=== PATIENT | male | born 1940 | race Caucasian/White ===

== ENCOUNTER 2024-03-06 14:31 | Emergency (ER) | payer OTHER ==
[~2024-03-06] VITALS: Ht 172.7 cm; Wt 77.0 kg
[2024-03-06 14:38] VITALS: BP 114/67; PULSE 110; RESP 16; O2SAT 96
[2024-03-06 15:20] LABS: CHLORIDE 101 mEq/L (98-107); POTASSIUM 3.5 mEq/L (3.5-5.1); SODIUM 135 mEq/L (136-145)
[2024-03-06 15:21] LABS: CARBON DIOXIDE 26 mEq/L (21-32)
[2024-03-06 15:22] LABS: CALCIUM 7.7 mg/dL (8.7-10.4)
[2024-03-06 15:23] LABS: BASOPHILS % 0.3 % (0.0-2.0); HEMATOCRIT. 38.8 % (42.0-52.0); HEMOGLOBIN. 13.4 g/dL (14.0-18.0); MEAN CORPUSCULAR HEMOGLOBIN 31.6 pg (28.0-32.0); MEAN CORPUSCULAR HGB CONC 34.7 g/dL (31.0-37.0); MEAN CORPUSCULAR VOLUME 91.2 fL (80.0-94.0); MEAN PLATELET VOLUME 8.4 fl (7.4-10.4); MONOCYTES % 5.7 % (2.0-8.0); PLATELET 154 x1000/uL (130-400); RED BLOOD CELL COUNT 4.25 mill/uL (4.7-6.1); RED CELL DISTRIBUTION WIDTH 13.9 % (11.6-14.6); WHITE BLOOD COUNT 7.7 x1000/uL (4.5-11.0)
[2024-03-06 15:26] LABS: CREATININE 1.7 mg/dL (0.6-1.3); GLUCOSE 130 mg/dL (70-105)
[2024-03-06 15:27] LABS: TROPONIN I HIGH SENSITIVITY 12 ng/L (3.0-53); UREA NITROGEN BLOOD 23 mg/dL (9-23)
[2024-03-06 15:28] LABS: ALANINE AMINOTRANSFERASE 21 IU/L (10-49); ALBUMIN 3.7 g/dL (3.2-4.8); ASPARTATE AMINOTRANSFERASE 35 IU/L (<34)
[2024-03-06 15:29] LABS: BILIRUBIN TOTAL 2.8 mg/dL (0.1-1.0); PROTEIN TOTAL 6.2 g/dL (6.0-8.3)
[2024-03-06 15:31] LABS: T4 FREE 1.22 ng/dL (0.89-1.76)
[2024-03-06 15:32] LABS: THYROID STIMULATING HORMONE 13.95 uIU/mL (0.55-4.78)
[2024-03-06] MEDS: SODIUM CHLORIDE 0.9% 1,000 ML IV ONE (15:42)
== END 2024-03-06 16:12 | disposition home or self-care (01) ==
LOC: ER 14:57
DX: R55 Syncope and collapse (principal); F19.90 Other psychoactive substance use, unspecified, uncomplicated; I10 Essential (primary) hypertension
CPT/HCPCS: 99285; 71045; 80053; 83880; 84439; 84443; 85025; 84484; 36415; 93005; J7030